=== PATIENT | female | born 1960 | race Caucasian/White ===

== ENCOUNTER 2016-10-13 14:09 | Outpatient (CLI) ==
[2016-02-23 15:59] VITALS: BMI 22.4
--- NOTE | 2016-10-15 08:59 | MAMMO ---
EXAM: Bilateral digital screening mammogram History: Baseline screening Findings: MLO and CC views of bilateral breasts demonstrate heterogeneously dense breast parenchyma which can obscure small lesions. There are no dominant masses, no suspicious microcalcifications a nd no architectural distortions Impression: Negative mammogram. Recommend followup routine screening mammography in 1 year. BIRADS 1
== END 2016-10-13 14:10 | disposition home or self-care (01) ==
LOC: MERGE 14:09 → RAD 14:09
PROVIDERS: ATTEND Family Medicine
DX: Z12.31 Encounter for screening mammogram for malignant neoplasm of breast (principal)